=== PATIENT | female | born 1940 | race Caucasian/White ===

== ENCOUNTER 2019-06-02 04:58 | Emergency (ER) | payer MEDICARE ==
[~2019-06-02] VITALS: Ht 157.5 cm; Wt 70.0 kg
--- NOTE | 2019-06-02 05:28 | NUR ---
Patient BIB [facility] today for [facility]. Patient states she has a hx of COPD and wears O2. She got up in the middle of the night to use the restroom and became SOB. Patient states she is always SOB but this was an extreme episode. [employer]LECTION [employer]PER[employer] of [facility], patient used her nebulized albuterol tx which helped. Patient is in NAD. Skin PWD. Patient speaking in full word sentences. Respirations even and unlabored. SPO2 >90% on baseline home O2. LS diminished throughout. Patient denies CP, productive cough, fevers, leg swelling. EKG completed upon arrival. BP, cardiac, and SPO2 monitor applied.
[2019-06-02] MEDS ORDERED: PLEASE ENTER ALLERGIES MC SCH (06:00)
--- NOTE | 2019-06-02 06:12 | NUR ---
Son contacted through [employer]. 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 [place] [phone]
[2019-06-02 06:13] VITALS: BP 125/72
== END 2019-06-02 07:34 | disposition home or self-care (01) ==
LOC: ED 05:41
DX: J43.9 Emphysema, unspecified (principal); I25.2 Old myocardial infarction; I48.91 Unspecified atrial fibrillation; Z87.891 Personal history of nicotine dependence; Z96.649 Presence of unspecified artificial hip joint
CPT/HCPCS: 93005; 99283; J7512